=== PATIENT | female | born 2005 | race Native Hawaiian/Other Pacific Islander ===

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

== ENCOUNTER 2023-03-24 23:00 | Emergency (ER) | payer OTHER, MEDICAID ==
[~2023-03-24 23:00] MED LIST changes: +ACHD5005 PO; +BENZ78AE5 TP; +DIBU30OI TOP; +DOCU100C37 PO; +FERR325T24 PO; +IBUP-844 PO; +WTCHGPD TOP
[2023-03-24] MEDS ORDERED: IBUPROFEN 800 MG TABLET PO STA (23:09)
--- NOTE | 2023-03-24 23:15 | ED Upper Extremity ---
General Stated Complaint: RIGHT SHOULDER PAIN| Source: patient History of Present Illness Date Seen by Provider: Mar 24, 2023 Time Seen by Provider: 23:04 Initial Comments 18-year-old female presenting with complaints of right shoulder pain. She state s that she had lifted her son yesterday and thought that she may be dislocated her shoulder. She has had pain and is not able to raise it above 90 degrees since the injury. She denies any prior problems with her shoulder. She is not fallen or directly hit her shoulder. She did not take anything for pain today. She states her pain is a 5 out of 10. Its worse when moving the arm at the shoulder and with palpation. Onset: yesterday Severity: moderate Pain/Injury Location: right shoulder Method of Injury: other (Lifting her son) Modifying Factors: Worse With Movement Allergies and Home Medications Allergies Uncoded Allergies: PENICILLIN (Allergy, Severe, swelling, 11/21/18) Patient Home Medication List Home Medication List Reviewed: Yes Benzocaine/Menthol (Dermoplast Pain Relieving [place]) 20 %-0.5 % Aerosol, 56 EA TP UD PRN for PAIN- SEE INSTRUCTIONS Prescribed by: HIGINIO JAIN on 06/08/22 1021 Dibucaine (Dibucaine) 1 % Oint, 1 EA TOP UD PRN for PAIN- SEE INSTRUCTIONS Prescribed by: HIGINIO JAIN on 06/08/22 1021 Docusate Sodium (Docusate Sodium) 100 Mg Capsule, 100 MG PO BID Prescribed by: HIGINIO JAIN on 06/08/22 1021 Ferrous Sulfate (Ferosul) 325 Mg (65 Mg Iron) Tablet, 325 MG PO DAILY Prescribed by: HIGINIO JAIN on 06/08/22 1021 Hydrocodone Bit/Acetaminophen (HYDROcodone/APAP 5 MG/325 MG TAB) 1 Tab Tab, 1 EA PO Q4H PRN for PAIN-MODERATE (5-7) Prescribed by: HIGINIO JAIN on 06/08/22 1022 Ibuprofen (Ibu) 600 Mg Tablet, 600 MG PO Q6H Prescribed by: HIGINIO JAIN on 06/08/22 1021 Ibuprofen (Ibuprofen) 800 Mg Tablet, 800 MG PO Q8H PRN for PAIN Prescribed by: CRISTIANE NICHOLS on 03/24/23 2316 Witch Renee/Glycerin (A.e.r Pads) 12.5 %-50 % Pad, 1 EA TOP UD PRN for PAIN- SEE INSTRUCTIONS Prescribed by: HIGINIO JAIN on 06/08/22 1021 Review of Systems Constitutional: No chills, No fever EENTM: no symptoms reported Respiratory: no symptoms reported Cardiovascular: no symptoms reported Gastrointestinal: no symptoms reported Genitourinary: no symptoms reported Musculoskeletal: see HPI Skin: No change in color Psychiatric/Neurological: Denies Numbness, Denies Paresthesia Past Evffwlv-Vpqgfn-Qeeetd Hx Patient Social History Tobacco Use?: No Immunizations Up To Date Tetanus Booster (TDap): Less than 5yrs PED Vaccines UTD: Yes Seasonal Allergies Seasonal Allergies: No Past Medical History Surgery/Hospitalization HX: Denies Surgeries: No Respiratory: No Cardiac: No Neurological: No Genitourinary: No Gastrointestinal: No Musculoskeletal: No Endocrine: Yes Hypothyroidsim HEENT: No Cancer: No Psychosocial: No Integumentary: No Blood Disorders: No Physical Exam Vital Signs Vital Signs - First Documented 03/24/23 23:04 Pulse 110 Resp 18 B/P (MAP) 121/69 (86) Pulse Ox 98 O2 Delivery Room Air Capillary Refill : Height, Weight, BMI Height: 4'11.00" Weight: 150lbs. oz. 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 Ice and ibuprofen to try and help with pain. Ibuprofen 800 mg p.o. x1. Obtain x-rays of the right shoulder to look for acute bony abnormality. Patient is able to move the shoulder so it does not appear to be dislocated. Advised she may end up needing to get an MRI to look at the soft tissues and muscles but we will see what an x-ray shows some for the bones in the shoulder tonight. Progress Note #2: Time: 23:21 Progress Note On my personal review and interpretation of the three-view films of the right shoulder she does not have any acute bony abnormality. There is no dislocation. Counseled on follow-up and return precautions. Treat for shoulder strain. Use ice 15 to 20 minutes every few hours as needed for pain and inflammation. Ibuprofen 800 mg p.o. every 8 hours as needed for pain and inflammation. Check back with the clinic for further work-up and MRI or Ortho referral if needed. Diagnostic Imaging Diagonstic Imaging: Xray Plain Films/CT/US/NM/MRI: other (Right shoulder) Reviewed: Reviewed by Me Departure Impression Primary Impression: Strain of right shoulder Qualified Codes: S46.911A - Strain of unspecified muscle, fascia and tendon at shoulder and upper arm level, right arm, initial encounter Disposition: HOME, SELF-CARE Condition: Stable Departure-Patient Inst. Decision time for Depature: 23:22 Referrals: KAYLEY NEWMAN MD (PCP/Family) Primary Care Physician Patient Instructions: Muscle Strain ED, Shoulder Pain ED, Using Cold for Pain Add. Discharge Instructions: Continue with ibuprofen 800 mg every 8 hours as needed for pain and inflammation. You could apply ice for 15 to 20 minutes every few hours as needed for pain and inflammation. Check back with the clinic for continued pain and problems as you may need to be referred to orthopedics or have an MRI to look at the soft tissues. Scripts Ibuprofen (Ibuprofen) 800 Mg Tablet 800 MG PO Q8H PRN for PAIN for 10 Days, #30 TAB 0 Refills Prov: CRISTIANE NICHOLS MD 03/24/23 Work/School Note: Work Release Form Date Seen in the Emergency Department: Mar 24, 2023 Return to Work: Mar 25, 2023 Restrictions: Need Release from Doctor Other Restrictions Listed Below: Limit use of the right arm for the next week or until cleared by clinic CRISTIANE NICHOLS MD Mar 24, 2023 23:15
[2023-03-24] MEDS ORDERED: IBUP-1780 PO (23:16)
[2023-03-24 23:24] VITALS: BP 121/69
--- NOTE | 2023-03-25 08:36 | Diagnostic Imaging Report ---
INDICATION: Pain. 3 views were obtained FINDINGS: The alignment is normal. No fracture or dislocation. Right lung is clear. IMPRESSION: No focal abnormality in the right shoulder. Dictated by: Dictated on workstation # [id number]
== END 2023-03-24 23:26 | disposition home or self-care (01) ==
LOC: EDUNIT# 23:00 → ER FS 23:03
DX: S46.911A Strain of unspecified muscle, fascia and tendon at shoulder and upper arm level, right arm, initial encounter (principal); Z28.310 Unvaccinated for COVID-19; X50.0XXA Overexertion from strenuous movement or load, initial encounter
CPT/HCPCS: 73030